=== PATIENT | female | born 1940 | race Caucasian/White ===

== ENCOUNTER 2016-08-10 18:14 | Observation (INO) | payer OTHER ==
[2016-08-10] MEDS ORDERED: methylPREDNISolone SOD SUCC 125 MG/2 ML VIAL IVP ONE (18:54)
[2016-08-10] MEDS ORDERED: IPRATROPIUM/ALBUTEROL 3 ML DEYVIAL IH ONE (18:54)
[2016-08-10] MEDS ORDERED: NS 500 ML IV ONE (18:54)
--- NOTE | 2016-08-10 19:00 | EDPHY ---
H & P Stated Complaint: shortness of breath and cough 6 days Time Seen by Provider: 08/10/16 18:30 HPI/ROS: CHIEF COMPLAINT: Shortness of breath HISTORY OF PRESENT ILLNESS: This is a 75-year-old female who presents reporting that she has had 1 week of shortness of breath. She developed shortness of breath somewhat abruptly 1 week ago while working in a [employer]. She has continue with shortness of breath, and a nonproductive cough, since that time. She initially thought that her ongoing symptoms are related to poor air quality in conjunction with exposure to dogs. She was noted to have a low-grade fever when she arrived to the emergency department but has not had a fever at home. She does report feeling achy. Patient denies any chest pain. She has had no palpitations, no vomiting, no diarrhea, no headache, no lightheadedness. No peripheral edema No upper respiratory infection complaints. Shortness of breath is ongoing, somewhat worsened with exertion. REVIEW OF SYSTEMS: Aside from elements discussed in the HPI, a comprehensive 10-point review of systems was reviewed and is negative. PAST MEDICAL HISTORY: Coronary artery disease, status post stent placement. History of hypertension. Hyperlipidemia. No history of COPD or congestive heart failure. Remote history of breast cancer. SOCIAL HISTORY: Patient is a former smoker, quit 20-30 years ago. VITAL SIGNS Reviewed by me. Noted to be hypoxic to 84% on the monitor. GENERAL: Well-developed, well-nourished, slightly tachypneic on my examination. Mild increase in her work of breathing. HEENT: Atraumatic. Eyes: No icterus, no injection. Mouth: moist mucous membranes. No erythema or lesions. Neck: supple with no adenopathy. LUNGS: Faint dry, bi basilar crackles and rales. No wheezes, rhonchi. CARDIAC: Regular rate and rhythm, no rubs, murmurs or gallops. ABDOMEN: Soft, nontender, nondistended, bowel sounds normal. BACK: No CVA tenderness. EXTREMITIES: No trauma. No edema. Range of motion is normal throughout. NEURO: Alert and oriented, grossly nonfocal. SKIN: Warm and dry, no rash. PSYCHIATRIC: Normal mentation, no agitation. - Personal History Current Tetanus/Diphtheria Vaccine: Yes - Medical/Surgical History Other PMH: cardiac stents 1994, breast cancer, - Social History Smoking Status: Never smoked Constitutional: Initial Vital Signs Temperature (C) 37.7 C 08/10/16 18:18 Heart Rate 66 08/10/16 18:18 Respiratory Rate 18 08/10/16 18:18 Blood Pressure 150/76 H 08/10/16 18:18 O2 Sat (%) 89 L 08/10/16 18:18 O2 Delivery Mode Room Air Allergies/Adverse Reactions: Sulfa (Sulfonamide Antibiotics) Allergy (Intermediate, Verified 08/10/16 18:22) latex Allergy (Verified 08/10/16 18:22) Home Medications: Medication Instructions Recorded ASPIRIN 08/10/16 Atorvastatin Calcium 08/10/16 Avastin 08/10/16 Bystolic 08/10/16 Evista 08/10/16 Plavix 08/10/16 Zetia 08/10/16 Zoloft 25mg (*) 08/10/16 Medical Decision Making - Diagnostics EKG Interpretation: 12-LEAD EKG: Please see the full report in [facility]. My interpretation: Sinus rhythm, no acute ST or T-wave changes. Imaging Results: Imaging Impressions Chest X-Ray 08/10/16 18:54 Impression: Negative chest.. Imaging: I viewed and interpreted images myself ED Course/Re-evaluation: 75-year-old female with a week of shortness of breath. She has minimal infectious symptoms, although she does have low-grade fever here and has been complaining of feeling achy. She describes her shortness of breath developing over short period of time approximately a week ago. No chest pain. Patient received a DuoNeb which she reports improved her shortness of breath. On re-examination she is moving better air. She continues with dry rales bibasilarly. She received Solu-Medrol 125 mg as well as albuterol nebs x2. Laboratory evaluation is largely unremarkable. Patient's troponin and BMP were significantly delayed as the analyzer at [facility] is not functioning. Following her neb treatments, the patient was again given a trial on room air. She desaturates to 88-87%. She has no prior history of bronchospasm, COPD, or hypoxemia requiring O2. Patient's course was discussed with Dr. Yuval Carty. Patient will be admitted to the hospital for ongoing treatment of her presumed bronchospasm, potential viral infection, and hypoxemia. Respiratory pathogen PCR panel was ordered as well as influenza. Patient's troponin eventually returned negative. Her BNP is 509. She has no peripheral edema nor signs of congestive failure on her chest x-ray. Of note, the patient does not have a primary care physician in the [place] area. She spends half her year in [place] and the other half in [place]. She is requesting referral to a internal medicine physician when she is discharged from the hospital. Differential Diagnosis: Differential diagnosis for the patient's shortness of breath was considered including but not limited to pulmonary infectious processes, COPD exacerbation, pulmonary emboli, pulmonary edema, congestive heart failure, and cardiac causes. Consult/Admit Bed Type: Dr Carty, [facility] - Data Points Laboratory Results: Laboratory Results 08/10/16 19:30 08/10/16 19:30 08/10/16 08/10/16 08/10/16 19:30 19:30 19:30 WBC RBC Hgb Hct MCV MCH MCHC RDW Plt Count MPV Neut % (Auto) Lymph % (Auto) [place] % (Auto) Eos % (Auto) Baso % (Auto) Nucleat RBC Rel Count Absolute Neuts (auto) Absolute Lymphs (auto) Absolute Monos (auto) Absolute Eos (auto) Absolute Basos (auto) Absolute Nucleated RBC Immature Gran % Immature Gran # D-Dimer 0.41 ug/mLFEU ug/mLFEU (0.00-0.50) VBG Lactic Acid 1.3 mmol/L mmol/L (0.7-2.1) Sodium 141 mEq/L mEq/L (134-144) Potassium 3.8 mEq/L mEq/L (3.5-5.2) Chloride 102 mEq/L mEq/L (97-110) Carbon Dioxide 26 mEq/l mEq/l (22-31) Anion Gap 13 mEq/L mEq/L (8-16) BUN 15 mg/dL mg/dL (7-23) Creatinine 0.9 mg/dL mg/dL (0.6-1.0) Estimated GFR > 60 Glucose 91 mg/dL mg/dL (70-100) Calcium 9.9 mg/dL mg/dL (8.5-10.4) Troponin I < 0.012 ng/mL ng/mL (0-0.034) NT-Pro-B Natriuret Pep 509 pg/mL H pg/mL (0-125) 08/10/16 19:30 WBC 13.02 10^3/uL H 10^3/uL (3.80-9.50) RBC 4.24 10^6/uL 10^6/uL (4.18-5.33) Hgb 12.7 g/dL g/dL (12.6-16.3) Hct 36.2 % L % (38.0-47.0) MCV 85.4 fL fL (81.5-99.8) MCH 30.0 pg pg (27.9-34.1) MCHC 35.1 g/dL g/dL (32.4-36.7) RDW 12.7 % % (11.5-15.2) Plt Count 218 10^3/uL 10^3/uL (150-400) MPV 9.7 fL fL (8.7-11.7) Neut % (Auto) 57.4 % % (39.3-74.2) Lymph % (Auto) 32.6 % % (15.0-45.0) [place] % (Auto) 5.2 % % (4.5-13.0) Eos % (Auto) 3.4 % % (0.6-7.6) Baso % (Auto) 0.2 % L % (0.3-1.7) Nucleat RBC Rel Count 0.0 % % (0.0-0.2) Absolute Neuts (auto) 7.48 10^3/uL H 10^3/uL (1.70-6.50) Absolute Lymphs (auto) 4.24 10^3/uL H 10^3/uL (1.00-3.00) Absolute Monos (auto) 0.68 10^3/uL 10^3/uL (0.30-0.80) Absolute Eos (auto) 0.44 10^3/uL H 10^3/uL (0.03-0.40) Absolute Basos (auto) 0.03 10^3/uL 10^3/uL (0.02-0.10) Absolute Nucleated RBC 0.00 10^3/uL 10^3/uL (0-0.01) Immature Gran % 1.2 % H % (0.0-1.1) Immature Gran # 0.15 10^3/uL H 10^3/uL (0.00-0.10) D-Dimer VBG Lactic Acid Sodium Potassium Chloride Carbon Dioxide Anion Gap BUN Creatinine Estimated GFR Glucose Calcium Troponin I NT-Pro-B Natriuret Pep Medications Given: Discontinued Medications Albuterol (Proventil Neb) 3 ml IH EDNOW ONE Stop: 08/10/16 20:07 Last Admin: 08/10/16 20:10 Dose: 3 ml Albuterol (Proventil Neb) 3 ml IH EDNOW ONE Stop: 08/10/16 20:07 Last Admin: 08/10/16 20:22 Dose: 3 ml Albuterol/Ipratropium (Duoneb) 3 ml IH EDNOW ONE Stop: 08/10/16 18:55 Last Admin: 08/10/16 19:20 Dose: 3 ml Sodium Chloride (Ns) 500 mls @ 1,000 mls/hr IV ONCE ONE PRN Reason: Protocol Stop: 08/10/16 19:23 Last Admin: 08/10/16 19:20 Dose: 500 mls Methylprednisolone Sodium Succinate (Solu-Medrol) 125 mg IVP EDNOW ONE Stop: 08/10/16 18:55 Last Admin: 08/10/16 19:36 Dose: 125 mg Departure - Departure Disposition: [facility] Inpatient Acute Clinical Impression: Hypoxemia, Bronchospasm, acute Dyspnea Qualifiers: Dyspnea type: unspecified Qualified Code(s): R06.00 - Dyspnea, unspecified Condition: Good
[2016-08-10 19:37] LABS: % IMMATURE GRANULYOCYTES 1.2 % (0.0-1.1); ABSOLUTE IMMATURE GRANULOCYTES 0.15 10^3/uL (0.00-0.10); ADD DIFF? NO; ADD MORPH? NO; ADD SCAN? NO; ATYPICAL LYMPHOCYTE FLAG 20 (0-99); FRAGMENT RBC FLAG 0 (0-99); HEMATOCRIT 36.2 % (38.0-47.0); HEMOGLOBIN 12.7 g/dL (12.6-16.3); LEFT SHIFT FLG 0 (0-99); LIPEMIA HEMOLYSIS FLAG 90 (0-99); MEAN CELL HEMOGLOBIN CONCENTR. 35.1 g/dL (32.4-36.7); MEAN CELL VOLUME 85.4 fL (81.5-99.8); MEAN PLATELET VOLUME 9.7 fL (8.7-11.7); PLATELET CLUMPS FLAG 0 (0-99); PLATELET COUNT 218 10^3/uL (150-400); RED BLOOD CELL COUNT 4.24 10^6/uL (4.18-5.33); RED CELL DISTRIBUTION WIDTH 12.7 % (11.5-15.2)
--- NOTE | 2016-08-10 19:47 | CPEKG ---
Heart Rate: 70 RR Interval: 857 P-R Interval: 144 QRSD Interval: 104 QT Interval: 456 QTC Interval: 493 P [place]: 44 QRS [place]: -26 EKG Severity - ABNORMAL ECG - EKG Impression: SINUS RHYTHM EKG Impression: LVH WITH SECONDARY REPOLARIZATION ABNORMALITY EKG Impression: BORDERLINE PROLONGED QT INTERVAL Electronically Signed By: Dae Spain 11-Aug-2016 15:53:10
[2016-08-10 19:49] LABS: ANION GAP 13 mEq/L (8-16); CALCIUM 9.9 mg/dL (8.5-10.4); CARBON DIOXIDE 26 mEq/l (22-31); CHLORIDE 102 mEq/L (97-110); CREATININE 0.9 mg/dL (0.6-1.0); GLOMERULAR FILTRATION RATE > 60; GLUCOSE 91 mg/dL (70-100); POTASSIUM 3.8 mEq/L (3.5-5.2); SODIUM 141 mEq/L (134-144)
[2016-08-10] MEDS ORDERED: ALBUTEROL 3 ML DEYVIAL IH ONE ×2 (20:06)
[2016-08-10 22:00] LABS: TROPONIN I < 0.012 ng/mL (0-0.034)
[2016-08-10] MEDS ORDERED: ACETAMINOPHEN 325 MG TAB PO PRN (23:48)
[2016-08-10] MEDS ORDERED: ONDANSETRON 4 MG/2 ML VIAL IVP PRN (23:48)
[2016-08-10] MEDS ORDERED: ONDANSETRON DISINTEGRATING 4 MG TAB PO PRN (23:48)
[2016-08-10] MEDS ORDERED: IPRATROPIUM/ALBUTEROL 3 ML DEYVIAL IH PRN (23:50)
--- NOTE | 2016-08-11 01:42 | GHP ---
[f rep st] HISTORY AND PHYSICAL DATE OF ADMISSION: 08/11/2016 CHIEF COMPLAINT: Shortness of breath. HISTORY OF PRESENT ILLNESS: Patient is a 75-year-old female with history of CAD, status post stents in the , breast cancer, presenting with shortness of breath since . She notes it more w ith walking or increased activity. She has had a nonproductive cough and has felt achy. Denies fev ers, chills, or sweats. No nausea, vomiting, diarrhea. No headaches. Mildly decreased p.o. intake . Denies any chest pain, lower extremity edema, orthopnea, or PND. She sees a surgical supervisor regular ly and has had echocardiograms in the past that were normal. REVIEW OF SYSTEMS: I completed a 10-point review of systems. Negative except as noted in HPI. PAST MEDICAL HISTORY: Coronary artery disease, status post stenting in 1997. Breast cancer, status post chemo and XRT. PAST SURGICAL HISTORY: 1. Cataract. 2. Ovarian cyst. FAMILY HISTORY: Father with heart issues and hypertension. SOCIAL HISTORY: Lives here in [place] part-time as well as [place]. Last in [place] in June. Smoked less than a pack of cigarettes for 10 years over 30 years ago. Drinks a glass of wine with dinner. No illicits. ALLERGIES: Latex, sulfa. HOME MEDICATIONS: Zoloft, Zetia, Plavix, Bystolic, Avastin, atorvastatin, and aspirin. PHYSICAL EXAMINATION: VITAL SIGNS: Temperature 99.1, blood pressure 141/60, heart rate 90s, respir ation 18, 87% on room air, 93 on 2 L. GENERAL: Well-appearing female, lying in bed, in no acute di stress. HEENT: PERRLA. EOMI. Oropharynx clear. CV: Regular rate and rhythm. No murmurs, turk ps, or rubs. LUNGS: Mild rales of left lung base. No wheezing. ABDOMEN: Soft, nontender, nondis tended. Positive bowel sounds. : No suprapubic tenderness. MUSCULOSKELETAL: 5/5 upper and low er extremity strength. NEURO: 2 through 12 intact. No focal deficits. PSYCH: Alert and oriented x3. Very pleasant. LABORATORY DATA: Sodium is 141, potassium 3.8, chloride 102, carbon dioxide 26, creatinine 0.9, glu cose 91. Troponin less than 0.012. BNP is 509. Lactic acid 1.3. Influenza pending. D-dimer 0.41 , WBCs 13, hemoglobin 12, hematocrit 36, platelets 218. Chest x-ray personally reviewed by me: No evidence of pneumonia or effusion. EKG personally reviewed by me: LVH, diffuse ST flattening. No old to compare. ASSESSMENT AND PLAN: 1. Acute hypoxic respiratory failure: Differential includes cardiac versus infection versus reacti ve airway disease. I suspect this is due to an upper respiratory infection. There is no evidence o f pneumonia on x-ray. A viral PCR and influenza are pending. She does state shortness of breath im proved after DuoNebs. Will continue these as well as prednisone. D-dimer, troponin, EKG were negat paulino for ischemia. She has no evidence of volume overload on exam. 2. Coronary artery disease: Resume home medications. 3. History of breast cancer, status post chemo and XRT. 4. Leukocytosis: Suspect secondary to upper respiratory infection. Denies other infectious sympto ms. Will culture if febrile. A viral PCR is pending. 5. Diet: Regular. 6. DVT prophylaxis: Lovenox. 7. Disposition: Patient warrants observation admission, given acute hypoxic respiratory failure wa rranting DuoNebs and serial labs. /[id number]/MODL
[2016-08-11 05:26] LABS: HEMATOCRIT 36.9 % (38.0-47.0); HEMOGLOBIN 12.3 g/dL (12.6-16.3); MEAN CELL HEMOGLOBIN 29.3 pg (27.9-34.1); MEAN CELL HEMOGLOBIN CONCENTR. 33.3 g/dL (32.4-36.7); MEAN CELL VOLUME 87.9 fL (81.5-99.8); RED BLOOD CELL COUNT 4.2 10^6/uL (4.18-5.33); RED CELL DISTRIBUTION WIDTH 12.7 % (11.5-15.2)
[2016-08-11 07:38] VITALS: BP 144/76; PULSE 88; RESP 16; TEMP 97.9; O2SAT 93
[2016-08-11] MEDS ORDERED: ENOXAPARIN 40 MG/0.4 ML SYR SC SCH (09:00)
[2016-08-11] MEDS ORDERED: predniSONE 20 MG TAB PO SCH (09:00)
--- NOTE | 2016-08-11 11:03 | GDS ---
[f rep st] DISCHARGE SUMMARY DISCHARGE DIAGNOSIS: 1. Probable acute bronchitis with reactive airways. 2. History of coronary artery disease. HISTORY: 75-year-old female, presents with increasing shortness of breath and cough with some wheez e. HOSPITAL COURSE: Patient was admitted and given nebulizer treatments as well as steroids. The foll owing day she was feeling a lot better. She is not requiring any oxygen. Her chest x-ray is negati ve for pneumonia. She will be discharged home on a short course of prednisone as well as albuterol. FOLLOWUP INSTRUCTIONS: She was instructed to follow up with primary care. She was given the phone number to make an appointment. /[id number]/MODL
== END 2016-08-11 12:20 | disposition home or self-care (01) ==
LOC: CED 18:14 → CEDHOLD 21:25 → F3E 23:40
PROVIDERS: ADMIT Internal Medicine; ATTEND Internal Medicine
DX: J98.01 Acute bronchospasm (principal); E86.9 Volume depletion, unspecified; D72.829 Elevated white blood cell count, unspecified; I25.10 Atherosclerotic heart disease of native coronary artery without angina pectoris; I10 Essential (primary) hypertension; E78.5 Hyperlipidemia, unspecified; Z87.891 Personal history of nicotine dependence; Z85.3 Personal history of malignant neoplasm of breast; Z95.5 Presence of coronary angioplasty implant and graft; Z88.2 Allergy status to sulfonamides
CPT/HCPCS: 71020; 93005; 96361; 96374; 99285; G0378; J1650; 80048-PO; 83605-PO; 83880-PO; 84484-PO; 85025-PO; 85378-PO

== ENCOUNTER 2016-08-29 14:36 | Inpatient (IN) | payer OTHER ==
--- NOTE | 2016-08-29 14:54 | EDPHY ---
HPI/HX/ROS/PE/MDM Narrative: CHIEF COMPLAINT: Shortness of breath. HPI: This patient is a 75 year old female arriving with her family complaining of recurring shortness of breath onset today. One month ago, she noted shortness of breath while working which became progressively worse, especially with exertion. A few weeks ago she was admitted here and treated for bronchospasm. She was discharged with steroids and inhaler. Since then she has felt well in general except with exertion, and went on vacation to [facility] with her family, returning yesterday evening. Today, she has been feeling short of breath again while walking and endorses nonproductive cough with associated achy pain. She denies fever or other associated symptoms. REVIEW OF SYSTEMS: Aside from elements discussed in the HPI, a comprehensive 10-point review of systems was reviewed and is negative. PMH: Breast cancer, cardiac stents. SOCIAL HISTORY: Lives in [place]. . PHYSICAL EXAM: General:Patient is alert, in no acute distress. ENT:Eyes are normal to inspection. ENT inspection normal. Neck: Normal inspection. Full range of motion. Respiratory:No respiratory distress. Breath sounds normal bilaterally. Cardiovascular: Regular rate and rhythm. Strong peripheral pulses. Normal cap refill. Abdomen:The abdomen is nontender to palpation. There are no peritoneal signs. There are normal bowel sounds. Back: Normal to inspection. No tenderness to palpation. Skin: Normal color. No rash. Warm and dry. Extremities: Normal appearance. Full range of motion. Neuro: Oriented x3. Normal motor function. Normal sensory function. Portions of this note were transcribed by an ED scribe. I personally performed the history, physical exam, and medical decision making; and confirm the accuracy of the information in the transcribed note. ED Course: EKG, Chest x-ray, labs including CBC, BMP, BNP, Troponin, and D-Dimer. Plan to administer DuoNeb for symptom relief. Plan for CTA. Chest x-ray negative for acute processes. 17:[address] Aguillon, radiologist. CTA negative for PE. 18:[address] Marx, hospitalist. Plan to admit for bronchitis, hypoxemia. MDM: This patient presents with dyspnea and hypoxia which appears to be a recurring issue for her. We performed an extensive workup in the ED today but clear etiology is found. There are no signs of PE, PTx, PNA, CHF or COPD exacerbation. Given ongoing hypoxia, patient requires admission to the hospital for further workup and oxygen supplementation. - Data Points Imaging Results: Imaging Impressions Chest X-Ray 08/29/16 14:56 Impression: Mild airways disease and minimal bibasilar atelectasis. No pneumonia. Chest/Thorax CTA 08/29/16 15:51 Impression: 1. No evidence of thrombopulmonary embolic disease. 2. Clear lungs, except for mild bronchitis. 3. No pneumonia, edema, or pulmonary nodule. Findings discussed with Emergency Department physician, Dr. Shant Mcqueen, on August 29, 2016 at 1722 hours. Laboratory Results: Laboratory Results 08/29/16 14:56 08/29/16 14:57 08/29/16 08/29/16 14:57 14:56 WBC 14.90 10^3/uL H 10^3/uL (3.80-9.50) RBC 4.41 10^6/uL 10^6/uL (4.18-5.33) Hgb 13.0 g/dL g/dL (12.6-16.3) Hct 37.8 % L % (38.0-47.0) MCV 85.7 fL fL (81.5-99.8) MCH 29.5 pg pg (27.9-34.1) MCHC 34.4 g/dL g/dL (32.4-36.7) RDW 12.9 % % (11.5-15.2) Plt Count 212 10^3/uL 10^3/uL (150-400) MPV 9.9 fL fL (8.7-11.7) Neut % (Auto) Not Reported Lymph % (Auto) Not Reported [place] % (Auto) Not Reported Eos % (Auto) Not Reported Baso % (Auto) Not Reported Nucleat RBC Rel Count 0.0 % % (0.0-0.2) Absolute Neuts (auto) Not Reported Absolute Lymphs (auto) Not Reported Absolute Monos (auto) Not Reported Absolute Eos (auto) Not Reported Absolute Basos (auto) Not Reported Absolute Nucleated RBC 0.00 10^3/uL 10^3/uL (0-0.01) Immature Gran % Not Reported Seg Neutrophils % 72 % % Band Neutrophils % 12 % % Lymphocytes % 9 % % Monocytes % 5 % % Eosinophils % 1 % % Metamyelocytes % 1 % % Immature Gran # Not Reported Absolute Seg Neuts 10.73 10^/uL H 10^/uL (1.70-6.50) Absolute Band Neuts 1.79 10^3/uL H 10^3/uL (0.00-0.70) Absolute Lymphocytes 1.34 10^3/uL 10^3/uL (1.00-3.00) Absolute Monocytes 0.75 10^3/uL 10^3/uL (0.30-0.80) Absolute Eosinophils 0.15 10^3/uL 10^3/uL (0.03-0.40) Absolute Metamyelocyte 0.15 10^3/mL H 10^3/mL (0.00-0.00) RBC/WBC/PLT Morphology NORMAL (NORMAL) Platelet Estimate ADEQUATE (ADEQ) Sodium 145 mEq/L H mEq/L (134-144) Potassium 3.6 mEq/L mEq/L (3.5-5.2) Chloride 107 mEq/L mEq/L (97-110) Carbon Dioxide 22 mEq/l mEq/l (22-31) Anion Gap 16 mEq/L mEq/L (8-16) BUN 15 mg/dL mg/dL (7-23) Creatinine 0.9 mg/dL mg/dL (0.6-1.0) Estimated GFR > 60 Glucose 106 mg/dL H mg/dL (70-100) Calcium 10.0 mg/dL mg/dL (8.5-10.4) Troponin I < 0.012 ng/mL ng/mL (0-0.034) NT-Pro-B Natriuret Pep 599 pg/mL H pg/mL (0-125) Medications Given: Discontinued Medications Albuterol/Ipratropium (Duoneb) 3 ml IH EDNOW ONE Stop: 08/29/16 17:37 Last Admin: 08/29/16 18:14 Dose: 3 ml General Time Seen by Provider: 08/29/16 14:52 Initial Vital Signs: Initial Vital Signs Temperature (C) 37 C 08/29/16 14:45 Heart Rate 101 H 08/29/16 14:45 Respiratory Rate 20 08/29/16 14:45 Blood Pressure 156/66 H 08/29/16 14:45 O2 Sat (%) 86 L 08/29/16 14:45 O2 Delivery Mode Nasal Cannula O2 (L/minute) 2 Allergies/Adverse Reactions: Sulfa (Sulfonamide Antibiotics) Allergy (Intermediate, Verified 08/10/16 18:22) latex Allergy (Verified 08/10/16 18:22) Home Medications: Medication Instructions Recorded Aspirin [Aspirin 81mg (*)] 81 mg PO HS 08/10/16 Atorvastatin Calcium [Lipitor 20 20 mg PO HS 08/10/16 mg (*)] Clopidogrel Bisulfate [Plavix (*)] 75 mg PO DAILY 08/10/16 Ezetimibe [Zetia 10 MG (*)] 10 mg PO HS 08/10/16 Nebivolol HCl [Bystolic 5 mg (*)] 5 mg PO DAILY 08/10/16 Raloxifene HCl [Evista] 60 mg PO DAILY 08/10/16 Sertraline HCl [Zoloft 25mg (*)] 25 mg PO DAILY 08/10/16 Herbals/Supplements -Info Only 1 ea PO DAILY 08/11/16 Cetirizine [ZyrTEC 10 mg (*)] 10 mg PO DAILY 08/29/16 Cholecalciferol (Vitamin D3) 5,000 unit PO DAILY 08/29/16 [Vitamin D3] Ranitidine HCl [Zantac] 150 mg PO BID 08/29/16 Departure - Departure Disposition: [facility] Acute Clinical Impression: Hypoxemia Acute bronchitis Qualifiers: Bronchitis organism: other organism Qualified Code(s): J20.8 - Acute bronchitis due to other specified organisms Condition: Fair Report Scribed for: Shant Mcqueen Report Scribed by: Soo James Date of Report: 08/29/16 Time of Report: 14:53
--- NOTE | 2016-08-29 14:58 | CPEKG ---
Heart Rate: 98 RR Interval: 612 P-R Interval: 144 QRSD Interval: 92 QT Interval: 368 QTC Interval: 470 P [place]: 63 QRS [place]: -20 T Wave [place]: 62 EKG Severity - ABNORMAL ECG - EKG Impression: NONSPECIFIC ST_T WAVE ABNORMAILITES EKG Impression: SINUS RHYTHM Electronically Signed By: Yonathan Alexander 31-Aug-2016 14:40:20
[2016-08-29 15:14] LABS: ADD DIFF? YES; ADD MORPH? NO; ADD SCAN? NO; ATYPICAL LYMPHOCYTE FLAG 0 (0-99); FRAGMENT RBC FLAG 0 (0-99); HEMATOCRIT 37.8 % (38.0-47.0); LEFT SHIFT FLG 0 (0-99); LIPEMIA HEMOLYSIS FLAG 90 (0-99); MEAN CELL HEMOGLOBIN 29.5 pg (27.9-34.1); MEAN CELL HEMOGLOBIN CONCENTR. 34.4 g/dL (32.4-36.7); MEAN CELL VOLUME 85.7 fL (81.5-99.8); MEAN PLATELET VOLUME 9.9 fL (8.7-11.7); PLATELET CLUMPS FLAG 0 (0-99); PLATELET COUNT 212 10^3/uL (150-400); RED BLOOD CELL COUNT 4.41 10^6/uL (4.18-5.33); RED CELL DISTRIBUTION WIDTH 12.9 % (11.5-15.2)
[2016-08-29 15:50] LABS: PLATELET ESTIMATE ADEQUATE (ADEQ)
[2016-08-29 15:54] LABS: ANION GAP 16 mEq/L (8-16); CARBON DIOXIDE 22 mEq/l (22-31); CHLORIDE 107 mEq/L (97-110); CREATININE 0.9 mg/dL (0.6-1.0); GLOMERULAR FILTRATION RATE > 60; GLUCOSE 106 mg/dL (70-100); POTASSIUM 3.6 mEq/L (3.5-5.2); SODIUM 145 mEq/L (134-144)
[2016-08-29 16:06] LABS: TROPONIN I < 0.012 ng/mL (0-0.034)
[2016-08-29] MEDS ORDERED: IOPAMIDOL (ISOVUE 370) 100 ML BTL IV ONE (16:37)
[2016-08-29] MEDS ORDERED: IPRATROPIUM/ALBUTEROL 3 ML DEYVIAL IH ONE (17:36)
[2016-08-29] MEDS ORDERED: ALBUTEROL 3 ML DEYVIAL IH PRN (20:24)
--- NOTE | 2016-08-29 20:55 | GHP ---
[f rep st] HISTORY AND PHYSICAL DATE OF ADMISSION: 08/29/2016 CHIEF COMPLAINT: Shortness of breath. HISTORY OF PRESENT ILLNESS: This is a 75-year-old female who was admitted to [facility] on admitted 08/10/2016 and discharged the following day on 08/11/2016 with the diagnosis of proba ble acute bronchitis and reactive airway disease with history of coronary artery disease. She was d ischarged on prednisone as well as inhaler, which she took for 5 days and finished around August 16. Since being discharged, she has travelled to [facility] where she had felt pretty well and had no t needed to use her inhaler. She did become winded with exertion and walking steps. She returned to [place] yesterday, and since being home, she reports worsening dyspnea on exertion and cough. She denies any significant leg swelling. Her legs were mildly swollen immediately after getting off the plane. She denies any fevers or chills. She denies any chest pain. PAST MEDICAL HISTORY: 1. Coronary artery disease, status post stent placed in 1997. 2. Breast cancer status post chemotherapy and radiation. PAST SURGICAL HISTORY: Cataract surgery and ovarian cyst. HOME MEDICATIONS: Reviewed, refer to [employer] for details. ALLERGIES: Latex and sulfa. 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 She has a 5-pack-year smo nini history but that was over 30 years ago. She drinks occasional alcohol. She denies any illicit drug use. FAMILY HISTORY: Significant for hypertension, and heart issues. REVIEW OF SYSTEMS: A comprehensive 10-point review of systems was done and is negative, except for as mentioned in the HPI. PHYSICAL EXAMINATION: VITAL SIGNS: Blood pressure 126/68, pulse of 84, respiratory rate 16, O2 sat 93% on 2 L, temperature afebrile. Initial room air oxygen saturation was 86%. GENERAL: No acute distress. HEAD: Normocephalic, atraumatic. EYES: PERRLA. Sclerae anicteric. MOUTH: Moist muco us membranes. NECK: Supple. No lymphadenopathy. CARDIOVASCULAR: S1 and S2. No murmurs, rubs, c licks, gallops, or JVD. No lower extremity edema. PULMONARY: There are fine crackles on exam. Th ere are no wheezes or increased respiratory effort. No dullness to percussion. ABDOMEN: Soft, non tender, nondistended. No guarding or rebound tenderness. Normoactive bowel sounds. EXTREMITIES: No clubbing or cyanosis. NEURO: Cranial nerves 2 through 12 grossly intact. No focal motor or sen hoa deficits. SKIN: Clear, no rashes. DIAGNOSTICS: CT angio of the chest was negative for PE. Lungs were clear except for what was warren d mild bronchitis. There was no pneumonia, edema, or pulmonary nodules. A respiratory panel done matilde alberto this month was negative for any organisms. WBC 14.9, hemoglobin 13, hematocrit 37.8, platele ts 212. D-dimer was elevated. Sodium 145, potassium 3.6, chloride 107, BUN 15, creatinine 0.9, glu cose 106, BNP was 599. EKG, which I visualized and personally interpreted, showed sinus rhythm, rat e 98 beats per minute, no acute ischemic changes. ASSESSMENT: This is a 75-year-old female recently admitted to [facility] with acute r espiratory failure, thought to be due to reactive airway disease and acute bronchitis presenting wit h: Recurrent acute respiratory failure of unclear etiology. PLAN: I reviewed the patient's CT scan, which does not reveal any significant pathology. However, she does have some fine crackles on exam. For now, she will be treated supportively with supplement al oxygen, low-dose prednisone, nebulizer treatments. Will also order echocardiogram to further bri luate her cardiac function, given her previous history of coronary artery disease and her mildly jonh vated BNP to evaluate for heart failure being a potential culprit for her symptoms. She would benef it from either an inpatient or outpatient pulmonology consultation. May also be useful to obtain a high-resolution CT scan of her chest to get a better view of her lung parenchyma. The patient will be placed on observation pending further workup. /[id number]/MODL
[2016-08-29] MEDS ORDERED: NON-FORMULARY NEW DRUG (Ranitidine Hcl [Zantac] 150 MG) PO SCH (21:00)
[2016-08-29] MEDS: EZETIMIBE 10 MG TAB PO SCH (21:49)
[2016-08-29] MEDS: FAMOTIDINE 20 MG TAB PO SCH (21:50)
[2016-08-29] MEDS: ASPIRIN 81 MG CHEWABLE TAB PO SCH (21:50)
[2016-08-29] MEDS: ATORVASTATIN CALCIUM 20 MG TAB PO SCH (21:50)
[2016-08-29] MEDS: predniSONE 20 MG TAB PO SCH (21:55)
[2016-08-30] MEDS: CHOLECALCIFEROL VIT D3 1,000 UNITS TAB PO SCH (08:34)
[2016-08-30] MEDS: CLOPIDOGREL BISULFATE 75 MG TAB PO SCH (08:35)
[2016-08-30] MEDS: FAMOTIDINE 20 MG TAB PO SCH ×2 (08:35→22:23)
[2016-08-30] MEDS: SERTRALINE HCL 25 MG TAB PO SCH (08:35)
[2016-08-30] MEDS: RALOXIFENE HCL 60 MG TAB PO SCH (08:36)
[2016-08-30] MEDS: NEBIVOLOL HCL 5 MG TAB PO SCH (08:36)
[2016-08-30] MEDS: CETIRIZINE 10 MG TAB PO SCH (08:36)
[2016-08-30] MEDS: predniSONE 20 MG TAB PO SCH (08:37)
[2016-08-30] MEDS ORDERED: NON-FORMULARY NEW DRUG (Cholecalciferol (Vitamin D3) [Vitamin D3] 5,000 UNIT) PO SCH (09:00)
[2016-08-30] MEDS ORDERED: Herbals/Supplements -Info Only PO SCH (09:00)
--- NOTE | 2016-08-30 11:46 | ECHO ---
[id number] + + [id number] : : [place] [address] : : [phone] + + Adult Echocardiographic Report + -----+ :Name: LYNNE VICENTEmanjusandeep Date: 08/30/2016 08:52 AM : : Hospital Admission Number: [id number] Location : 155: :: 1940 Gender: Female Height: 64 in : :Age: 75 yrs Race: WH Weight: 188 lb : :Reason For Study: RODRIGUEZ/respiratory failure : : BSA: 1.9 meters2 : :History: Stents : + -----+ MMode/2D Measurements \T\ Calculations IVSd: 0.82 cm LVIDd: 5.4 cm FS: 43.0 % Ao root diam: LVPWd: 0.90 cm LVIDs: 3.1 cm EDV(Teich): 3.5 cm 143.7 ml LA dimension: ESV(Teich): 3.5 cm 38.0 ml EF(Teich): 73.6 % LVLd ap4: 7.2 cm SV(MOD-sp4): EDV(MOD-sp4): 37.0 ml 52.0 ml LVLs ap4: 5.4 cm ESV(MOD-sp4): 15.0 ml EF(MOD-sp4): 71.2 % Normal Measurement Values: + + :LVIDd (3.5-5.7cm) IVSd (0.6-1.1cm) LVPWd (0.6-1.1cm) Aortic Root (2.0-3.7cm)Left Atrium (1.5-4.0cm): :LV Vol(d) (76-115ml) LV Vol(s) (29-48ml) Ejec Fraction (50-65%)PV Torey (0.6- 1.2m/s) TV Torey (0.4-1.0m/s) : :MV E Torey (0.8-1.0m/s)MV A Torey (0.3-1.0m/s)LVOT Torey (0.7-1.2m/s) Asc Ao Torey ( 0.9-1.8m/s) : + + Doppler Measurements \T\ Calculations MV E max torey: Ao V2 max: AI max torey: TR max torey: 60.2 cm/sec 128.6 cm/sec 340.8 cm/sec 265.6 cm/sec MV A max torey: Ao max PG: AI max P.5 mmHgTR max P.4 cm/sec 6.6 mmHg AI dec slope: 28.2 mmHg MV E/A: 0.71 219.5 cm/sec2 RAP systole: AI P1/2t: 454.8 msec5.0 mmHg RVSP(TR): 33.2 mmHg Left Ventricle The left ventricle is normal in size. There is normal left ventricular wall thickness. Left ventricular systolic function is normal. Ejection Fraction = 60-65%. No regional wall motion abnormalities noted. Right Ventricle The right ventricle is normal in size and function. Atria The left atrial size is normal. Right atrial size is normal. The interatrial septum is intact with no evidence for an atrial septal defect. Mitral Valve The mitral valve is normal in structure and function. There is no evidence of mitral valve prolapse. There is no mitral valve stenosis. There is mild mitral regurgitation. Tricuspid Valve Normal tricuspid valve. There is trace tricuspid regurgitation. Aortic Valve The aortic valve is trileaflet. The aortic valve opens well. There is no aortic stenosis. Mild aortic regurgitation. Pulmonic Valve The pulmonic valve is normal in structure and function. Trace pulmonic valvular regurgitation. Great Vessels The aortic root is normal size. Pericardium/Pleural There is no pericardial effusion. Conclusion A complete two-dimensional transthoracic echocardiogram was performed (2D, M-mode, Doppler and color flow Doppler). Left ventricular systolic function is normal. Ejection Fraction = 60-65%. No regional wall motion abnormalities noted. There is mild mitral regurgitation. There is trace tricuspid regurgitation. Mild aortic regurgitation. Trace pulmonic valvular regurgitation. Final Reading Physician: Eugenie Hardy signed on 08/30/2016 11:44 AM Ordering Physician: Franklin Marx Performed By: Preethi Rivero, [facility]
--- NOTE | 2016-08-30 15:03 | HOSPPROG ---
Hospitalist Progress Note Assessment/Plan: 75-year-old female admitted with acute respiratory distress. There is prior history of acute bronchospasm which was treated with a short course of bronchodilators and then stop. Patient is new to me today - acute reactive airway disease with acute bronchitis: Patient is currently on bronchodilators steroids and will be placed on a short course of antibiotics. She does not have productive sputum and feels improved at this time. - Elevated BNP: Cardiac echo shows normal LV function without wall motion abnormalities. Patient has had no chest pain. Admission ECG is benign. The elevated BNP is probably related to mild cardiac strain due to reactive airway disease. She noted peripheral edema when she came from the plane on arriving in [place] and thus clinically she does represent probable CHF with mild diastolic dysfunction. This was likely secondary to her respiratory distress. It appears to be resolving now. - history of coronary artery disease, status post stent x2 placement in 1997. No signs of chest pain cardiac ischemia. ECG reviewed personally by myself shows normal sinus rhythm without evidence of cardiac ischemia. There is LVH by voltage criteria in aVL. - History of breast cancer greater than 20 years ago. Patient is essentially a cure. She is followed by a oncologist in [place] where she spends half of her year. Plan: Patient can likely be discharged on 08/31. she should be discharged on bronchodilators a short course of antibiotics and tapering dose of steroids. Additionally she should have a pulmonary followup as she is had no pulmonary care. She may need more long-term bronchodilator care possibly with steroids and bronchodilators. Billing: Patient will be changed to inpatient status as she remains hypoxic on room air with some respiratory distress with exertion. The remains the complicating problem of possible CHF with diastolic dysfunction due to the elevated BP and P though this was not seen on echo clinically she demonstrates this finding. Due to these compound medical problems I believe she should remain 1 more evening. Time: 40 minutes. the matters of her pulmonary care and follow-up were discussed with she and her . All questions were answered Subjective: reports she feels improved with less shortness of breath. No chest pain nausea vomiting headache or fever Objective: Vital Signs Temp Pulse Resp BP Pulse Ox 36.7 C 75 18 117/58 L 95 08/30/16 12:08/30/16 12:08/30/16 12:08/30/16 12:08/30/16 12:00 08/29/16 08/30/16 08/31/16 05:59 05:59 05:59 Intake Total 400 Output Total 400 Balance 400 -400 - Time Spent With Patient Time Spent with Patient: greater than 35 minutes Time Spent with Patient: Greater than 35 minutes spent on this patients care, greater than 50% of time spent counseling, educating, and coordinating care regarding the above mentioned plan. - Pending Discharge Pending Discharge Within 24 Hours: Yes Pending Discharge Date: 08/31/16 Pending Discharge Time: 11:00 - Physical Exam Constitutional: no apparent distress Eyes: PERRL Ears, Nose, Mouth, Throat: moist mucous membranes Cardiovascular: regular rate and rhythym, no murmur, rub, or gallop Respiratory: no respiratory distress, other ( a few rales are noted in the bases bilaterally without increased dullness E to a changes) Gastrointestinal: normoactive bowel sounds, soft, non-tender abdomen Genitourinary: no bladder fullness Skin: warm Musculoskeletal: full muscle strength Neurologic: AAOx3, CN II-XII Intact Psychiatric: interacting appropriately ICD10 Worksheet Patient Problems: Problems Problem Status Onset Acute bronchitis Acute Hypoxemia Acute Bronchospasm, acute Acute Dyspnea Acute Hypoxemia Acute
[2016-08-30] MEDS ORDERED: predniSONE 20 MG TAB PO SCH (15:14)
[2016-08-30] MEDS: IPRATROPIUM/ALBUTEROL 3 ML DEYVIAL IH SCH ×2 (17:24→22:32)
[2016-08-30] MEDS: ATORVASTATIN CALCIUM 20 MG TAB PO SCH (22:23)
[2016-08-30] MEDS: ASPIRIN 81 MG CHEWABLE TAB PO SCH (22:23)
[2016-08-30] MEDS: DOXYCYCLINE INJ 100 MG in NS 250 ML IV SCH (22:23)
[2016-08-30] MEDS: EZETIMIBE 10 MG TAB PO SCH (22:23)
[2016-08-31] MEDS: IPRATROPIUM/ALBUTEROL 3 ML DEYVIAL IH SCH ×5 (01:05→18:02)
[2016-08-31] MEDS: CHOLECALCIFEROL VIT D3 1,000 UNITS TAB PO SCH (08:51)
[2016-08-31] MEDS: RALOXIFENE HCL 60 MG TAB PO SCH (08:51)
[2016-08-31] MEDS: SERTRALINE HCL 25 MG TAB PO SCH (08:52)
[2016-08-31] MEDS: CLOPIDOGREL BISULFATE 75 MG TAB PO SCH (08:52)
[2016-08-31] MEDS: NEBIVOLOL HCL 5 MG TAB PO SCH (08:52)
[2016-08-31] MEDS: CETIRIZINE 10 MG TAB PO SCH (08:52)
[2016-08-31] MEDS: FAMOTIDINE 20 MG TAB PO SCH (08:52)
[2016-08-31] MEDS: DOXYCYCLINE INJ 100 MG in NS 250 ML IV SCH (08:53)
[2016-08-31 16:48] VITALS: BP 132/67; PULSE 81; RESP 17; TEMP 98.7; O2SAT 94
--- NOTE | 2016-08-31 22:38 | GDS ---
[f rep st] DISCHARGE SUMMARY DISCHARGE DIAGNOSES: 1. Acute respiratory failure, likely due to reactive airway disease and acute bronchitis. 2. Elevated BNP with relatively normal-appearing echocardiogram. 3. History of coronary artery disease. 4. History of breast cancer. CONSULTANTS: Dr. Isai Hendrix, [facility]. HOSPITAL COURSE AND STAY BY PROBLEM: Acute respiratory failure: The patient presented to the [facility] for the second time this month with dyspnea on exertion and shortness of breath. A CT angio of the chest was done on her initial presentation, and it was negative for PE. It did show linear scar ring versus opacities in the inferior lingula and right middle lobes. During her hospital stay, she has been afebrile. She has been started on prednisone, which seems to have helped some; however, s he has required supplemental oxygen throughout her stay. On the day of discharge, she is still requ iring 1 L of oxygen to maintain her sats above 90. Initially a BNP was done, and it was mildly elevated. An echocardiogram was done on 08/29/2016, [facility] showed a normal ejection fraction of 60% to 65% with no other real significant abnormalities. Pr ior to discharge, I did discuss the case with Dr. Isai Hendrix who is motion picture cameraman for Pulmonology who ev aluated the patient. Spirometry has been ordered. On exam, the patient does have some fine crackle s, which does worry me that she may have some interstitial lung disease that was not seen on the nor mal resolution chest CT. Will defer further workup to Dr. Hendrix. PHYSICAL EXAMINATION: VITAL SIGNS: On day of discharge, blood pressure 119/48, pulse 90, respirato ry rate 16, O2 saturation 96% on 1 L, temperature afebrile. GENERAL: In no acute distress. HEART: S1, S2. LUNGS: Fine crackles. No wheezes or rales. ABDOMEN: Soft. EXTREMITIES: No edema. PERTINENT LABORATORIES AND STUDIES: Echocardiogram done 08/29/2016, refer to report. CT angio of t he chest on 08/29/2016, refer to report. DISCHARGE MEDICATIONS: Please refer to discharge medication reconciliation in [facility] for details. DISCHARGE INSTRUCTIONS: The patient will be discharged from the hospital with supplemental oxygen, as well as a 7-day course of prednisone and an albuterol inhaler. She should follow up with Dr. Nidia keene as instructed, as well as with her primary care provider in 1 week for routine hospital followup. /[id number]/MODL
--- NOTE | 2016-09-01 11:15 | GCON ---
[f rep st] CONSULTATION PULMONARY CONSULTATION DATE OF CONSULTATION: 08/31/2016 REASON FOR CONSULTATION: Shortness of breath, hypoxemia. HISTORY: The patient is a very pleasant 75-year-old who was admitted to [facility] on 08/29 secondary to shortness of breath and hypoxemia in the 80s. She has no history of underlying lung disease. She smoked for about 10 years, from the age of 17 through 27. She has no history of asthma. She was admitted overnight on 08/10/2016 for shortness of breath. Chest x-ray and evaluation were unremarkable. A respiratory viral panel was negative. She did not require oxygen on discharge. She was given nebulized treatments and steroids with apparent improvement. A short course of prednisone was given. The patient felt better on returning home, was less short of breath. She subsequently went to [facility], traveling by plane. She felt well there but perhaps was somewhat unable to keep up with her family and friends with exertional activities. This, however, was mild and did not result in any significant limitations. On return to [place] by air, she had a somewhat difficult flight and long day. When she got off the airplane, she had dyspnea on exertion and felt that she could not walk to baggage claim. She was provided assistance in a cart. She continued to notice shortness of breath with exertional activities that night and the next day. She could not do her usual activities of daily living without shortness of breath. She had no chest pain. She had a slight dry cough, no fevers, no chills. She was not bringing up any mucus. She thus presented to the emergency department 2 days ago. She has been treated with doxycycline, steroids and nebulized treatments as well as oxygen. Saturations were in the mid 80s on room air, on admission. A CT angiogram of the chest was obtained which was unremarkable for pulmonary embolic disease. Some airway thickening was noted. No interstitial disease was evident; however this was not a high-resolution CT scan. BNP was mildly elevated at approximately 500. Cardiac echo was performed and was normal. Laboratory has been normal. No serology has been obtained. The patient does have a history of coronary artery disease and is status post previous stenting. She has a distant history of breast cancer, 20 years ago. She was treated with chemotherapy but does not recall all the medicine she was given at that time. PAST MEDICAL HISTORY: Remarkable for coronary artery disease, stenting, and breast cancer as noted above. There is a history of reflux, hypertension, and allergies. MEDICATIONS: On admission included Zoloft, Zantac, Evista, Bystolic, Zetia, Plavix, aspirin, Zyrtec, Lipitor, albuterol which she has not been using, and possibly prednisone? SOCIAL HISTORY: The patient is . She and her are retired. They live half the year in [place] close to family, and then half the year in [facility] close to other family members. She has not smoked for many years. She has had no exposures. Travel is as outlined above. Significant alcohol is negative. FAMILY HISTORY: Negative for lung disease or thromboembolic disease. REVIEW OF SYSTEMS: Ten-point review of systems is negative except as noted in the HPI. PHYSICAL EXAMINATION: GENERAL: Reveals a very pleasant woman who is sitting comfortably in bed. VITAL SIGNS: Oxygen is in place at 1 L with saturations of 95%. Blood pressure is 130/65, heart rate 80 and regular. Respiratory rate is 16. She is afebrile. HEENT: Unremarkable for lymphadenopathy or thyromegaly. There is no jugular venous distention. CHEST: Reveals some bibasilar rales. These are only at the bases and do not extend up even [address] There are no wheezes, no rhonchi. Expiratory phase is not prolonged. There is no rub. HEART: Regular in rate and rhythm. There are no significant murmurs, no gallops. P2 appears normal. ABDOMEN: Soft, nontender. Bowel sounds are present. EXTREMITIES: Without edema. There are no cords, no tenderness. NEUROLOGIC: Intact. DATABASE: Radiologic studies are as outlined above. LABORATORY: White blood cell count on admission, possibly on prednisone, was 14 ,900, hematocrit 37.8. Platelets were normal. Blood lactate on admission was 1.3. Basic metabolic panel was within normal limits. Troponins were negative. BNP is nonspecifically elevated at 599. Spirometry was performed pre and post bronchodilator. The forced vital capacity is 2.07 L, 72% of predicted. This improves 5%, nonsignificantly after bronchodilator. The FEV1 is 1.81 L, 84% of predicted at baseline and does not change after bronchodilator. This is consistent with a mild restrictive defect. ASSESSMENT: Shortness of breath/dyspnea on exertion with mild hypoxemia. The etiology for this is unclear. This is a new issue for the patient over the last 1 month. Findings may be consistent with mild early interstitial lung disease. However, CT of the chest does not show evidence of significant interstitial lung disease. This, however, was not a high-resolution study. There was no evidence of thromboembolic disease. Some airway thickening was noted, however this is nonspecific and there is no evidence of obstructive lung disease or reversibility. A recent subclinical infectious process cannot be absolutely excluded. The patient is on doxycycline. This will be continued to complete a 7- day course. She is also on prednisone and albuterol. She feels better with these therapies and with the oxygen. These will be continued, with the prednisone wean relatively rapidly and the albuterol used as needed. Oxygen can be used as needed. The patient is to get a home pulse oximeter and can monitor her own saturations, and use oxygen accordingly. She should use it at night and with exertional activities during the day that result in significant shortness of breath or hypoxemia. She may not need oxygen at rest during the day. PLAN AND RECOMMENDATIONS: The patient will be discharged home today on prednisone 40 mg for 3 days, then 30 for 3 days, then 20 mg per day. Doxycycline will be continued 100 mg b.i.d. x5 more days. Albuterol can be used as needed. Oxygen should be used as outlined above. I will see the patient back in the office for pulmonary followup next week. Complete pulmonary function studies will be done at that time and further workup done based on her progress. Please note that the patient has no primary care physician yet in this area. /[id number]/MODL MTDD
== END 2016-08-31 18:16 | disposition home or self-care (01) | DRG 189 ==
LOC: F1N 19:54 → OBSVTOIN 08-30 15:11
PROVIDERS: ADMIT Family Medicine; ATTEND Family Medicine
DX: J96.01 Acute respiratory failure with hypoxia (principal); J20.9 Acute bronchitis, unspecified; J45.909 Unspecified asthma, uncomplicated; I25.10 Atherosclerotic heart disease of native coronary artery without angina pectoris; I10 Essential (primary) hypertension; K21.9 Gastro-esophageal reflux disease without esophagitis; Z95.5 Presence of coronary angioplasty implant and graft; Z85.3 Personal history of malignant neoplasm of breast; Z87.891 Personal history of nicotine dependence
CPT/HCPCS: G0378; Q9967

== ENCOUNTER → 2017-03-31 | Outpatient (CLI) | payer OTHER | LOC: FIMAGING 07:42 | PROVIDERS: ATTEND Internal Medicine | DX: Z12.39 Encounter for other screening for malignant neoplasm of breast (principal); Z85.3 Personal history of malignant neoplasm of breast; Z80.3 Family history of malignant neoplasm of breast ==

== ENCOUNTER → 2017-03-31 | Outpatient (CLI) | payer OTHER | LOC: FIMAGING 07:52 → BMCIMAGING 07:52 | PROVIDERS: ATTEND Internal Medicine | DX: Z12.31 Encounter for screening mammogram for malignant neoplasm of breast (principal); Z85.3 Personal history of malignant neoplasm of breast; Z80.3 Family history of malignant neoplasm of breast ==

== ENCOUNTER → 2017-09-20 | Outpatient (CLI) | payer OTHER | DX: N83.201 Unspecified ovarian cyst, right side (principal) | CPT/HCPCS: 76856-PO ==

== ENCOUNTER → 2018-04-04 | Outpatient (CLI) | payer OTHER | LOC: FIMAGING 11:03 | PROVIDERS: ATTEND Internal Medicine Geriatric Medicine | DX: Z12.31 Encounter for screening mammogram for malignant neoplasm of breast (principal); Z85.3 Personal history of malignant neoplasm of breast; Z80.3 Family history of malignant neoplasm of breast ==

== ENCOUNTER → 2018-04-17 | Outpatient (CLI) | payer OTHER | LOC: FIMAGING 10:02 | PROVIDERS: ATTEND Internal Medicine Geriatric Medicine | DX: Z13.820 Encounter for screening for osteoporosis (principal); M85.89 Other specified disorders of bone density and structure, multiple sites; Z78.0 Asymptomatic menopausal state; Z87.81 Personal history of (healed) traumatic fracture; Z85.3 Personal history of malignant neoplasm of breast ==